=== PATIENT | male | born 1975 | race Caucasian/White ===

== ENCOUNTER 2023-08-26 12:42 | Outpatient (CLI) | payer BC, SELFPAY | END 2023-08-26 12:43 | disposition home or self-care (01) | LOC: ANHBWCAUD 12:43 | PROVIDERS: PCP Family Medicine; Visit Provider Otolaryngology | DX: H93.19 Tinnitus, unspecified ear (principal); H90.42 Sensorineural hearing loss, unilateral, left ear, with unrestricted hearing on the contralateral side | CPT/HCPCS: 92557; 92567 ==

== ENCOUNTER 2025-06-29 09:19 | Emergency (ER) | payer BC, SELFPAY ==
--- NOTE | ~2025-06-29 | XR_ITS ---
EXAMINATION: XR wrist LT min 3V DATE: 06/29/2025 10:04 INDICATION: Fall on stairs TECHNIQUE: Posteroanterior, ulnar deviation, oblique, and lateral views of the left wrist were obtained. COMPARISON: none FINDINGS: Bone alignment is normal with normal variant type II lunate with separate facet along the midcarpal joint which articulates with the hamate. No fracture. Joint spaces are normal. Soft tissues are unremarkable. IMPRESSION: 1. No acute osseous abnormality. Reviewed, dictated and finalized at location A. BOUND BOX MACHINE OPERATOR
--- OUTSIDE RECORDS SUMMARY | 2025-06-29 09:22 | XMS_ITS | Encounter Summary ---
Author Organization [facility] Address [address] [facility] [place] [address] Care Team Providers Care Buildings And Grounds Supervisor Name Role Phone Jaycob Tinoco MD Primary Care Provider [phone] Encounter Details Date Type Department Care Team (Late st Contact Info) Description 09/26/2020 Lab Requisition [facility] DermPath Lab [address] [facility], [facility] [place] [id number] Cr Will MD [address] [address] Social History Tobacco Use Types Packs/Day Years Used Date Smoking Tobacco: Never Assessed Sex and Gender Information Value Date Recorded Sex Assigned at Male 09/19/2021 1:59 PM CDT 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 Gender Identity Male 09/19/2021 1:59 PM CDT Sexual Orientation Straight 09/19/2021 1: 59 PM CDT documented as of this encounter Plan of Treatment Not on file documented as of this encounter Procedures Procedure Name Priority Date/Time Associated Diagnosis Comments DERMATOPATHOLOGY Routine 09/25/2020 12:0 0 AM CDT documented in this encounter Results * DERMATOPATHOLOGY (09/25/2020 12:00 AM CDT) Case Report Dermatopathology Report Case: [id number] Authorizing Provider: Cr Will MD Collected: 09/25/2020 12:00 AM Ordering Location: [facility] DermPath Lab Received: 09/26/2020 12:26 PM Pathologist: Keesha Harding MD Specimens: A) - Skin, ant left shoulder B) - Skin, post right shoulder 12:50 PM CDT DERMATOPATHOLOGY LABORATORY Final Diagnosis Specimen A. SKIN, ant left shoulder: DERMAL SCAR RESIDUAL BASAL CELL CARCINOMA NOT IDENTIFIED (L90.5) Specimen B. SKIN, post right shoulder: BASAL CELL CARCINOMA, SUPERFICIAL MULTIFOCAL (C44.612) NOT PRESENT AT SAMPLED MARGIN DERMAL SCAR (L90.5) (see microscopic description) 12:50 PM CDT DERMATOPATHOLOGY LABORATORY at 1250 CDT Clinical History A-B: Bx proven BCC. Check margins. Previous Bx: [id number]. 12:50 PM CDT DERMATOPATHOLOGY LABORATORY Gross Description Specimen A: Received is one formalin filled container labeled with the patient's name and designated ant left shoulder. The specimen consists of a curettage and desiccation biopsy measuring [id number], the margin is inked green. Jar 0. Specimen B: Received is one formalin filled container labeled with the patient's name and designated post right shoulder. The specimen consists of a curettage and desiccation biopsy measuring [id number], the margin is inked green. Jar 0. 12:50 PM CDT DERMATOPATHOLOGY LABORATORY Microscopic Description Specimen A. SKIN, ant left shoulder: There are fibroblasts and collagen bundles oriented parallel to the skin surface. There are elongated blood vessels, some of which are oriented perpendicular to the skin surface. No basal cell carcinoma is identified on hematoxylin and eosin or BerEP4 immunohistochemical stains. Specimen B. SKIN, post right shoulder: Attached to the undersurface of the epidermis, there are small aggregates of basaloid cells with a high nuclear to cytoplasmic ratio and peripheral palisading. This lesion is not present at the sampled margin of the specimen.There are fibroblasts and collagen bundles oriented parallel to the skin surface with elongated blood vessels, some of which are oriented perpendicular to the skin surface. Additional deeper sections were obtained and reviewed. 12:50 PM CDT DERMATOPATHOLOGY LABORATORY Disclaimer An external and internal positive and negative controls are appropriate for the histochemical, immunohistochemical and immunofluorescence stain(s) in this case (if any), except where stated explicitly. The performance characteristics of the stain(s) cited in this report were developed and its performance characteristic determined by the Dermatopathology Laboratory at [facility], directed by Dr. Aurelia Negron. These tests need not be, and therefore are not, approved by the [place] Food and Drug Administration. The tests are used for clinical purposes. Billing Codes Specimen Charges Stain Charges 53827 03490 1 1 58974 1 1 12:50 PM CDT DERMATOPATHOLOGY LABORATORY Embedded Images 12:50 PM CDT DERMATOPATHOLOGY LABORATORY Pathology/Cytology TISSUE SPECIMEN FROM SKIN / Unknown 09/25/2020 09/26/2020 12:26 PM CDT Miscellaneous samples (specimen) TISSUE SPECIMEN FROM SKIN / Unknown 09/25/2020 09/26/2020 12:26 PM CDT Cr Will MD LAB - PATHOLOGY/CYTOLOGY ORD ERABLES Final Result DERMATOPATHOLOGY LABORATORY [facility] - Department of Dermatology [facility] Specialized Medicine [address] [place] [address], [address] [phone] documented in this encounter Visit Diagnoses Not on filedocumented in this encounter Care Teams Buildings And Grounds Supervisor Relationship Specialty Start Date End Date Jaycob Tinoco MD [address] [place] [address] PCP - General Family Medicine 05/07/21 documented as of this encounter
--- OUTSIDE RECORDS SUMMARY | 2025-06-29 09:22 | XMS_ITS | Encounter Summary ---
Author Organization [facility] Address [address] [place] [address] Care Team Providers Care Document Processing Specialist Name Role Phone Jaycob Tinoco MD Primary Care Provider [phone] Encounter Details Date Type Department Care Team (Late st Contact Info) Description 09/07/2020 Lab Requisition [facility] DermPath Lab [address] [place] [id number] Cr Will MD [address] [place] [address] Social History Tobacco Use Types Packs/Day Years Used Date Smoking Tobacco: Never Assessed Sex and Gender Information Value Date Recorded Sex Assigned at Male 09/19/2021 1:59 PM CDT 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 Gender Identity Male 09/19/2021 1:59 PM CDT Sexual Orientation Straight 09/19/2021 1: 59 PM CDT documented as of this encounter Plan of Treatment Not on file documented as of this encounter Procedures Procedure Name Priority Date/Time Associated Diagnosis Comments DERMATOPATHOLOGY Routine 09/05/2020 3:33 AM HAND THERMAL CUTTER documented in this encounter Results * DERMATOPATHOLOGY (09/05/2020 3:33 AM HAND THERMAL CUTTER) Case Report Dermatopathology Report Case: [id number] Authorizing Provider: Cr Will MD Collected: 09/05/2020 03:33 AM Ordering Location: [facility] DermPath Lab Received: 09/07/2020 06:50 AM Pathologist: Dionna Burgos MD Specimens: A) - Skin, anterior left shoulder B) - Skin, posterior right shoulder 1:05 PM [facility] DERMATOPATHOLOGY LABORATORY Final Diagnosis Specimen A. SKIN, anterior left shoulder: BASAL CELL CARCINOMA, SUPERFICIAL MULTIFOCAL (C44.619) Specimen B. SKIN, posterior right shoulder: BASAL CELL CARCINOMA, SUPERFICIAL MULTIFOCAL (C44.612) 1 1:05 PM [facility] DERMATOPATHOLOGY LABORATORY at 1305 HAND THERMAL CUTTER Clinical History A-B: R/O HAK, Arellano's, SCC, BCC. 1 1:05 PM [facility] DERMATOPATHOLOGY LABORATORY Gross Description Specimen A: Received is one formalin filled container labeled with the patient's name and designated anterior left shoulder. The specimen consists of a shave biopsy measuring [id number]. Jar 0. Specimen B: Received is one formalin filled container labeled with the patient's name and designated posterior right shoulder. The specimen consists of a shave biopsy measuring [id number]. Jar 0. 1 1:05 PM [facility] DERMATOPATHOLOGY LABORATORY Microscopic Description Specimen A. SKIN, anterior left shoulder: Attached to the undersurface of the epidermis, there are small aggregates of basaloid cells with a high nuclear to cytoplasmic ratio and peripheral palisading. Specimen B. SKIN, posterior right shoulder: Attached to the undersurface of the epidermis, there are small aggregates of basaloid cells with a high nuclear to cytoplasmic ratio and peripheral palisading. 1 1:05 PM [facility] DERMATOPATHOLOGY LABORATORY Disclaimer An external and internal positive and negative controls are appropriate for the histochemical, immunohistochemical and immunofluorescence stain(s) in this case (if any), except where stated explicitly. The performance characteristics of the stain(s) cited in this report were developed and its performance characteristic determined by the Dermatopathology Laboratory at [facility], directed by Dr. Aurelia Negron. These tests need not be, and therefore are not, approved by the [place] Food and Drug Administration. The tests are used for clinical purposes. Billing Codes Specimen Charges Stain Charges 35197 [id number] 1 1 1 1:05 PM [facility] DERMATOPATHOLOGY LABORATORY Embedded Images 1:05 PM [facility] DERMATOPATHOLOGY LABORATORY Pathology/Cytology TISSUE SPECIMEN FROM SKIN / Unknown 09/05/2020 3:33 AM HAND THERMAL CUTTER 09/07/2020 6:50 AM HAND THERMAL CUTTER Miscellaneous samples (specimen) TISSUE SPECIMEN FROM SKIN / Unknown 09/05/2020 3:33 AM HAND THERMAL CUTTER 09/07/2020 6:50 AM HAND THERMAL CUTTER Cr Will MD LAB - PATHOLOGY/CYTOLOGY ORD ERABLES Final Result DERMATOPATHOLOGY LABORATORY [facility] - Department of Dermatology [facility] Specialized Medicine [address] [place] [address], [address] Floor [address] [phone] documented in this encounter Visit Diagnoses Not on filedocumented in this encounter Care Teams Document Processing Specialist Relationship Specialty Start Date End Date Jaycob Tinoco MD [address] [place] [address] PCP - General Family Medicine 05/07/21 documented as of this encounter
--- OUTSIDE RECORDS SUMMARY | 2025-06-29 09:22 | XMS_ITS | Clinical Summary ---
Author Organization [facility] Address [address] [place] [address] Phone Care Team Providers Care Souvenir Street Vendor Name Role Phone Jaycob Tinoco MD Primary Care Provider [phone] Allergies No known active allergies Medications amLODIPine (NORVASC) 10 MG Tablet 12/11/2024 Active escitalopram (LEXAPRO) 10 MG Tablet Take 10 mg by mouth daily. Active busPIRone (BUSPAR) 10 MG Tablet Take 10 mg by mouth. 09/08/2021 Active Active Problems No known active problems Social History Tobacco Use Types Packs/Day Years Used Date Smoking Tobacco: Never Smokeless Tobacco: Never Sex and Gender Information Value Date Recorded Sex Assigned at Not on file Legal Sex Male 10:13 PM CDT Gender Identity Not on file Sexual Orientation Not on file Last Filed Vital Signs Vital Sign Reading Time Taken Comments Blood Pressure 124/72 12/21/2024 8:13 AM CDT Pulse 76 12/21/2024 8:13 AM CDT Temperature 36.2 C (97.2 F) 12/21/2024 8:13 AM CDT Respiratory Rate 20 12/21/2024 8:13 AM CDT Oxygen Saturation 94% 12/21/2024 8:13 AM CDT Inhaled Oxygen Concentration - - Weight - - Height - - Body Mass Index - - Plan of Treatment Health Maintenance Due Date Last Done Comments Hepatitis C Virus (HCV) Screening 1974 Hepatitis B Immunization (1 of 3 - 19+ 3-dose series) 1993 Cologuard 2019 Colonoscopy 2019 Colorectal Cancer Screening 2019 Immunochemical Fecal Occult Blood 2019 Pneumococcal Immunization (50+ years) (1 of 1 - PCV) 2024 Influenza Immunization (#1) 03/07/202504/06, 05/04/2023, 05/01/2022, Additional history exists SARS-COV-2 Immunization ( - 2024- season) 2025 04/16/2024, 07/14/2022, 05/15/2021, Additional history exists Respiratory Syncytial Virus (RSV) Immunization (Adult) (1 - 1-dose 75+ series) 2049 TdaP Immunization Completed 03/30/2019 Zoster Immunization Completed 08/30/2024, Human Papillomavirus (HPV) Immunization (No Doses Required) Completed Meningococcal Immunization (ACWY) Aged Out No longer eligible based on patient's age to complete this topic Rotavirus Immunization Aged Out No lo nger eligible based on patient's age to complete this topic Insurance Care Teams Souvenir [address] Vendor Relationship Specialty Start Date End Date Jaycob Tinoco MD [address] [address] PCP - General Family Medicine 12/21/24
--- OUTSIDE RECORDS SUMMARY | 2025-06-29 09:22 | XMS_ITS | Patient Health Record ---
Author Organization [facility] , Address [address] [place] [address] Care Team Providers Care Weather Stripper Name Role Phone Jaycob Tinoco Primary Care Provider Jamel Kearney Unavailable [phone] Reason For Referral No Information Plan Of Treatment No Information Insurance Providers Payer Name Payer Address Payer Phone Subscriber Number Group Number Insured Name Patient Relationship to Insured Coverage Start Date Coverage End Date Leticia [facility] [address] [place] [address] [phone] [id number] Dinesh Riley Self - patient is the insured
--- OUTSIDE RECORDS SUMMARY | 2025-06-29 09:22 | XMS_ITS | Clinical Summary ---
Author Organization [facility] Address [address] [place] [address] Care Team Providers Care Sales Mgr Name Role Phone Jaycob Tinoco MD Primary Care Provider Source Comments [facility],non-owned Affiliates and Associated Physician Practices is amultiple site organization consisting of ambulatory clinics and hospital sitesin [place], [place], [place] and [place]. This disclosure is being madepursuant to the Care Everywhere program and may not contain all information available regarding this patient. Last updated 18.[facility] Allergies No known active allergies Medications * Be aware that medications may not be up to date on this document. Alwaysverify current medications with the patient. busPIRone (BUSPAR) 10 MG tablet Take 10 mg by mouth 2 times daily 09/08/2021 Active escitalopram (LEXAPRO) 10 MG tablet Take 10 mg by mouth once daily Active levocetirizine (XYZAL) 5 MG tablet Take 5 mg by mouth once daily Active Active Problems Problem Noted Date Diagnosed Date Class 2 severe obesity due t o excess calories with serious comorbidity and body mass index (BMI) of 38.0 to 38.9 in adult 09/28/2021 Fatty liver 09/28/2021 Mixed hyperlipidemia 09/28/2021 Anxiety 09/28/2021 Social History Tobacco Use Types Packs/Day Years Used Date Smoking Tobacco: Every Day Cigars Smokeless Tobacco: Never Tobacco Cessation:Ready to Q uit: Yes; Counseling Given: Yes Alcohol Use Standard Drinks/Week Comments Yes 0 (1 standard drink = 0.6 oz pur e alcohol) Sex and Gender Information Value Date Recorded Sex Assigned at Male 09/19/2021 1:59 PM CDT 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 Gender Identity Male 09/19/2021 1:59 PM CDT Sexual Orientation Straight 09/19/2021 1: 59 PM CDT Last Filed Vital Signs Vital Sign Reading Time Taken Comments Blood Pressure 130/80 04/29/2022 2:19 PM CDT RETOOK PATIENT BP CAUSE IT WAS HIGH HE WALK UP THE STAIR WHEN HE ARRIVE FOR HIS APPT Pulse 69 04/29/2022 2:19 PM CDT Temperature 36.8 C (98.3 F) 04/29/2022 2:19 PM CDT Respiratory Rate 20 12/05/2021 10:2 6 AM CDT Oxygen Saturation 97% 04/29/2022 2:1 9 PM CDT Inhaled Oxygen Concentration - - Weight 125.6 kg (276 lb 12.8 oz) 04/29/2022 2:19 PM CDT Height 180.3 cm (5' 11) 04/29/2022 2:1 9 PM CDT Body Mass Index 38.61 04/29/2022 2:19 PM CDT Plan of Treatment Health Maintenance Due Date Last Done Comments COLOGUARD (AGES 45-75) - COLON CA SCREENING 1974 COLON MONITORING 1974 COLONOSCOPY - COLON CA SCREENING 1974 CT COLONOGRAPHY - COLON CA SCREENING 1974 Colorectal Cancer Screening 1974 FIT - COLON CA SCREENING 1974 FLEX SIG - COLON CA SCREENING 1974 LIPID TESTING 1974 HIV SCREENING 1989 HEPATITIS C SCREENING 04/18/1992 DTAP/TDAP/TD VACCINES (1 - Tdap) 1993 HEPATITIS B VACCINE (1 of 3 - 19+ 3-dose series) 1993 PNEUMOCOCCAL VACCINE 50+ (1 of 2 - PCV) 1993 ZOSTER VACCINE (1 of 2) 2024 DEPRESSION SCREENING 07/07/2024 SCREENING FOR DIABETES 09/19/2024 09/19/2021 COVID-19 VACCINE (3 - 2024- season) 2025 05/15/2021, 09/08/2020 INFLUENZA VACCINE (#1) 2025 , 03/15/2021, 04/11/2020, Additional history exists HIB VACCINE Aged Out No longer eligi ble based on patient's age to complete this topic HPV VACCINE Aged Out No longer eligi ble based on patient's age to complete this topic MENINGOCOCCAL (Group B) VACCINE SHARED DECISION-MAKING Aged Out No longer eligible based on patient's age to complete this topic MENINGOCOCCAL GROUPS A/C/Y/W VACCINE Aged Out No longer eligible based on patient's age to complete this topic Procedures Procedure Name Priority Date/Time Associated Diagnosis Comments BASIC METABOLIC PANEL (CALCIUM TOTAL) Routine 09/19/2021 8:39 AM CDT Class 3 severe obesity due to excess calories with serious comorbidity and body mass index (BMI) of 40.0 to 44.9 in adult from Last 3 Months or Most Recently Relevant to Health Maintenance Results * BASIC METABOLIC PANEL (CALCIUM TOTAL) (09/19/2021 8:39 AM CDT) Glucose 96 65 - 99 mg/dL [facility] INSURANCE BILL BUN 14 6 - 24 mg/dL [facility] INSURANCE BILL Creatinine 0.95 0.76 - 1.27 mg/dL [facility] INSURANCE BILL eGFR by CKD-EPI 99 >59 mL/min/1.7 3 [facility] INSURANCE BILL BUN/Creatinine Ratio 15 9 - 20 [facility] INSURANCE BILL Sodium 144 134 - 144 mmol/L [facility] INSURANCE BILL Potassium 5.0 3.5 - 5.2 mmol/L [facility] INSURANCE BILL Chloride 104 96 - 106 mmol/L [facility] INSURANCE BILL CO2 22 20 - 29 mmol/L [facility] INSURANCE BILL Calcium 9.7 8.7 - 10.2 mg/dL [facility] INSURANCE BILL Comment:FASTING Blood BLOOD SPECIMEN / Unknown 09/19/2021 8:39 AM CDT 09/19/2021 Narrative Resulting Agency Comment Lab Testing performed at: [facility] [address] [id number] [place] Lizett Garcia MD LAB - CHEMISTRY ORDERABLES F inal Result [facility] INSURANCE BILL [address] [place] [address] from Last 3 Months or Most Recently Relevant to Health Maintenance Insurance [facility] [place] [id number] [facility] [place] [id number] Care Teams Sales Mgr Relationship Specialty Start Date End Date Jaycob Tinoco MD [address] [place] [address] PCP - General Family Medicine 05/07/21
--- OUTSIDE RECORDS SUMMARY | 2025-06-29 09:22 | XMS_ITS | Clinical Summary ---
Author Organization [facility] Address Count includes the [facility] [place] [address] Care Team Providers Care Gas Derrick Operator Name Role Phone Unavailable Primary Care Provider Unavailabl e Allergies No known active allergies Medications atorvastatin 20 MG tablet Take 20 mg by mouth daily. Active cetirizine 10 MG tablet Take 10 mg by mouth daily. Active escitalopram 10 MG tablet Take 10 mg by mouth daily. Active omeprazole 40 MG capsule Take 40 mg by mouth daily. Active aspirin 81 MG chewable tablet Chew 81 mg by mouth daily. Active Social History Tobacco Use Types Packs/Day Years Used Date Smoking Tobacco: Never Smokeless Tobacco: Never Sex and Gender Information Value Date Recorded Sex Assigned at Not on file Legal Sex Male 2:16 PM METER INSPECTOR Gender Identity Not on file Sexual Orientation Not on file Last Filed Vital Signs Vital Sign Reading Time Taken Comments Blood Pressure 128/82 08/28/2017 11:34 AM METER INSPECTOR Pulse 73 08/28/2017 11:34 AM METER INSPECTOR Temperature 36.7 C (98.1 F) 05/26/2017 3:52 PM METER INSPECTOR Respiratory Rate 18 05/26/2017 3:52 PM METER INSPECTOR Oxygen Saturation 95% 05/26/2017 3:52 PM METER INSPECTOR Inhaled Oxygen Concentration - - Weight 139.3 kg (307 lb) 08/28/2017 11:34 AM METER INSPECTOR Height 185.4 cm (6' 1) 08/28/2017 11:34 AM METER INSPECTOR Body Mass Index 40.5 08/28/2017 11:34 AM METER INSPECTOR Plan of Treatment Health Maintenance Due Date Last Done Comments Colorectal Cancer Screening Colonoscopy (10 Years) 1974 Annual Physical 1977 Hepatitis C 1992 DTaP, Tdap and Td Vaccines ( 1 - Tdap) 1993 Hepatitis B Vaccines (1 of 3 - 19+ 3-dose series) 1993 Pneumococcal Vaccine: 50+ Ye ars (1 of 1 - PCV) 2024 Zoster Vaccines (1 of 2) 2024 COVID-19 Vaccine (1 - 2024-2 6 season) 2025 Influenza Adult (#1) 2025 Hepatitis A Vaccines Aged Out No long er eligible based on patient's age to complete this topic Meningococcal B Vaccine Aged Out No l onger eligible based on patient's age to complete this topic Meningococcal Vaccine Aged Out No karla tracy eligible based on patient's age to complete this topic RSV Immunizations Under 20 Months Aged Out No longer eligible based on patient's age to complete this topic Insurance [facility] Advance Directives * Full Code (Latest Code Status on File) Date Activated Date Inactivated Comments 05/26/2017 1:25 PM 05/27/2017 8:54 AM
--- OUTSIDE RECORDS SUMMARY | 2025-06-29 09:22 | XMS_ITS | Encounter Summary ---
Author Organization [facility] Address [address] [place] [address] Care Team Providers Care Canal Boat Captain Name Role Phone Unavailable Primary Care Provider Unavailabl e Encounter Details Date Type Department Care Team (Late st Contact Info) Description 05/23/2017 Pre-Procedure Call [facility] [place] [address] Jodi Landeros, RN Social History Tobacco Use Types Packs/Day Years Used Date Smoking Tobacco: Never Assessed Sex and Gender Information Value Date Recorded Sex Assigned at Not on file Legal Sex Male 2:16 PM WAGON WASHER Gender Identity Not on file Sexual Orientation Not on file documented as of this encounter Last Filed Vital Signs Vital Sign Reading Time Taken Comments Blood Pressure - - Pulse - - Temperature - - Respiratory Rate - - Oxygen Saturation - - Inhaled Oxygen Concentration - - Weight 140.6 kg (310 lb) 05/23/2017 12:00 AM WAGON WASHER Height 185.4 cm (6' 1) 05/23/2017 12:00 AM WAGON WASHER Body Mass Index 40.9 05/23/2017 12:00 AM WAGON WASHER documented in this encounter Plan of Treatment Not on file documented as of this encounter Visit Diagnoses Not on filedocumented in this encounter
--- OUTSIDE RECORDS SUMMARY | 2025-06-29 09:22 | XMS_ITS | Encounter Summary ---
Author Organization [facility] Address [address] [place] [address] Care Team Providers Care Stock Selector Name Role Phone Unavailable Primary Care Provider Unavailabl e Encounter Details Date Type Department Care Team (Late st Contact Info) Description 05/23/2017 Hospital Orders Only 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
[2025-06-29 09:23] VITALS: BP 145/81; PULSE 89; RESP 20; TEMP 36.3; O2SAT 97
--- NOTE | 2025-06-29 09:47 | ED.GENADULT ---
HPI - General Adult General Chief complaint: Extremity Injury, Upper Stated complaint: left wrist pain/right elbow/upper respiratory Time Seen by Provider: 06/29/25 09:47 Source: patient, RN notes reviewed and old records reviewed Mode of arrival: ambulatory Limitations: no limitations History of Present Illness HPI narrative: 50 year old male presents to [facility] care with complaints of falling at home 1 week ago and has pain to the base of his left wrist and hand,states that he put arm down to break fall, has also complaints of some pain to his right posterior elbow with history of previous tendonitis to his elbow. He reports also some nasal congestion with ear pain for the past few days. Patient reports that he has been taking Advil and using Afrin nasal spray. MD complaint: left wrist pain, right elbow discomfort, and sinsus congestion and ear pain Onset (ago): week(s) (2 weeks right elbow,1 week left wrist, few days sinus and ear pain) Severity scale (1-10): 4 Quality: aching Treatments prior to arrival: NSAID and other (afrin nasal spray) Related Data Allergies Allergy/AdvReac Type Severity Reaction Status Date / Time atorvastatin AdvReac Intermediate myalgia Verified 06/29/25 09:30 Review of Systems Review of Systems: CONSTITUTIONAL: Denies fever, chills, or sweats. EYES: Denies visual changes, redness, or discharge. ENT: Reports rhinorrhea, congestion, no sore throat, + otalgia. CARDIOVASCULAR: Denies chest pain, palpitations, or edema. RESPIRATORY: reports cough no dyspnea. GASTROINTESTINAL: Denies abdominal pain, nausea, vomiting, or diarrhea. GENITOURINARY: Denies dysuria or hematuria. SKIN: Denies rash or itching. MUSCULOSKELETAL: Denies back pain, positive left wrist pain since fall 1 week ago also some tendonitis to right elbow or myalgia. NEUROLOGIC: Denies headache, numbness, or weakness. PSYCHIATRIC: Denies anxiety or depression. All systems reviewed & are unremarkable except as noted in HPI and below PMFSH Past Medical History Medical History Morbid obesity with BMI of 40.0-44.9, adult Obesity (BMI 35.0-39.9 without comorbidity) Hypertension Overactive bladder History of basal cell cancer Surgical History Surgical History History of shoulder surgery History of knee surgery Hx of colonoscopy Family History Family History Father Hypertension Grandparent Hypertension Malignant neoplasm of prostate Mother H/O heart bypass surgery Heart disease Sibling Hypertension Social History Social History Smoking status: Former smoker Tobacco type: cigars Second hand tobacco smoke exposure: Yes Smoking end date: 07/07/20 Alcohol intake: current Drinks per week: 4 Substance use: never Substance use type: does not use Lack of Transportation: No Lack of Food: Never True Current Housing: I Have Housing Concerned About Future Housing: No Difficulty Paying Gas/Electric Bills: No Difficulty Paying for Meds: No Currently Unemployed: No Education: Bachelor's Degree Difficulty w/ Childcare or Family Care: No Living arrangements: with family Additional living arrangements comments: and kids Occupation/Education: occupation 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 There is no relevant family history pertinent to the presenting complaint Exam Narrative: GENERAL: Well-appearing, well-nourished,obese, and in no acute distress. HEAD: Normocephalic, atraumatic. EYES: PERRLA and EOMI. ENT: Nares clear, clear rhinorrhea no epistaxis. Mucous membranes moist.TM's normal with good light reflex, throat red no swelling or tonsil enlargement or exudates NECK: Supple.no lymphadenopathy CHEST: Clear to auscultation. No respiratory distress.occasional cough nonproductive SAO2 97% HEART: Regular rate and rhythm. No murmur heard. Normal peripheral pulses. ABDOMEN: Soft, nontender, nondistended, normal active bowel sounds. EXTREMITIES: Normal range of motion. No edema. Pain to posterior right elbow with stated past history of tendonitis of elbow, left wrist pain from fall on stairs at home on stairs. Patient has full mobility of all extremities no swelling noted circulation is intact to extremities with no tingling or numbness voiced. SKIN: Warm, dry, no rash. NEURO: No focal deficits. Alert and oriented x3.of Course Course Level of Care: Express Care Visit Vital Signs Vital signs: Vital Signs Temperature 36.3 C L 06/29/25 09:23 Pulse Rate 89 06/29/25 09:23 Respiratory Rate 20 06/29/25 09:23 Blood Pressure 145/81 H 06/29/25 09:23 Pulse Oximetry 97 06/29/25 09:23 Oxygen Delivery Room Air 06/29/25 09:23 Temperature 36.3 C L 06/29/25 09:23 Pulse Rate 89 06/29/25 09:23 Respiratory Rate 20 06/29/25 09:23 Blood Pressure 145/81 H 06/29/25 09:23 Pulse Oximetry 97 06/29/25 09:23 Oxygen Delivery Room Air 06/29/25 09:23 reviewed MDM MDM Narrative Medical decision making narrative: Patient presents with left wrist pain from fall with no fracture noted, some right elbow tendonitis and URI symptoms. Will treat with Flonase and some Prednisone with RX sent to patient's pharmacy.Patient agrees with plan of care. Patient received anticipatory guidance and reasons to seek care in ED reviewed with understanding voiced. Differential Diagnosis Differential Diagnosis: Differential diagnostic considerations for upper respiratory infection include upper respiratory infection, croup, otitis media, sinusitis, viral infection, bronchitis, influenza, pharyngitis, strep, uvulitis.? Differential diagnostic considerations for upper extremity injury include sprain/strain of wrist, fracture of wrist, finger sprain, dislocation of finger, fracture of hand, dislocation of shoulder, fracture of humerus, fracture of clavicle, laceration, tendon injury, carpal tunnel syndrome.? Imaging Data Attestation: I personally reviewed and interpreted this imaging study as follows: My impression: no acute osseous abnormality no fracture noted Radiologist's impression: ITS Impressions Wrist X-Ray 06/29/25 10:21 IMPRESSION: 1. No acute osseous abnormality. [facility] [place] [address] [place] [address] XRay Report Signed Patient: Dinesh Riley : 1975 MR#: [id number] Age: 50 Acct:[id number] Loc: [facility] ADM Date: 06/29/[address]: Ordering Physician: Tonya Deluna APRN Date of Service: 06/29/25 Procedure(s): XR wrist LT min 3V Accession Number(s): [id number] cc: Tonya Deluna APRN; Jaycob Tinoco MD~ EXAMINATION: XR wrist LT min 3V DATE: 06/29/2025 10:04 INDICATION: Fall on stairs TECHNIQUE: Posteroanterior, ulnar deviation, oblique, and lateral views of the left wrist were obtained. COMPARISON: none FINDINGS: Bone alignment is normal with normal variant type II lunate with separate facet along the midcarpal joint which articulates with the hamate. No fracture. Joint spaces are normal. Soft tissues are unremarkable. IMPRESSION: 1. No acute osseous abnormality. Reviewed, dictated and finalized at location A. OVEMENT INTERN Please be advised this is a medical document. It is intended for [id number] communication. It is written in medical language and may contain unfamiliar abbreviations or verbiage. Medical documents are intended to carry relevant information, facts as evident, and the clinical opinion of the practitioner at the time of the encounter. This report may have been done utilizing a voice recognition system. Attempts have been made to correct errors. However, there may be uncorrected grammatical, spelling, and recognition errors present. The file time of this note does not necessarily represent the time of service. Dictated By: Ricky Funes MD 06/29/25 1021 Signed By: <Electronically signed by Ricky Funes MD in OV> Critical Care Time Critical Care Time Critical Care Time: No Discharge Plan Discharge Clinical Impression: Right elbow tendinitis, Pain in left wrist URI (upper respiratory infection) Qualifiers: URI type: unspecified URI Qualified Code(s): J06.9 - Acute upper respiratory infection, unspecified Patient Disposition: Home Condition: Stable Instructions: Wrist Injury (ED), Upper Respiratory Infection (ED), Tendinitis (ED) Additional Instructions: Tylenol for lesser pain Ibuprofen regularly for the next 2-3 days for the inflammation Tylenol alternating with ibuprofen for pain for the next 2 days take with food Follow-up with orthopedic surgeon or hand surgeon if continued discomfort Follow-up with PCP if further problems or concerns Ice to the area 20-30 minutes 4-6 times a day Elevate above heart Increase fluids especially juices and water [id number] cough and cold medicine of your choice for your symptoms, recommend Delsym or Robitussin cough syrup Zyrtec Claritin or Anju daily include Coricidin brand decongestant Flonase nasal spray daily Steroids as directed--take with food heat to the face 20-30 minutes 4-6 times a day for pain Salt water gargles, throat lozenges or throat sprays as desired If your symptoms persist, change or worsen significantly before you can contact your personal physician then please, without delay, go to the emergency department for further evaluation. Follow-up with PCP in 7-10 days or sooner if needed Follow up with PCP soon in regards to your blood pressure which is elevated above threshold for referral. Blood pressure above 120/80 may indicate pre-hypertension. 145/81 Patient Language: Australian Prescriptions: New prednisone 20 mg tablet 40 mg PO DAILY 5 Days Qty: 10 0RF fluticasone propionate [Flonase Allergy Relief] 50 mcg/actuation spray,suspension 1 spray intranasal DAILY Qty: 16 0RF Rx Instructions: administer into each nostril No Action amlodipine 10 mg tablet 10 mg PO DAILY Qty: 90 3RF Follow-up/Referrals: Jaycob Tinoco MD [Primary Care Provider, [facility]] Time of Disposition: 10:33 Quality Michael Coma Scale Eyes: Open Verbal: Oriented and Alert Motor: Follows Commands [place] Coma Total Score: 15
== END 2025-06-29 10:38 | disposition home or self-care (01) ==
PROVIDERS: Emergency Provider Registered Nurse; PCP Family Medicine
DX: M67.823 Other specified disorders of tendon, right elbow (principal); M25.532 Pain in left wrist; J06.9 Acute upper respiratory infection, unspecified; I10 Essential (primary) hypertension; E66.01 Morbid (severe) obesity due to excess calories; Z68.41 Body mass index [BMI] 40.0-44.9, adult; Z85.828 Personal history of other malignant neoplasm of skin; Z87.891 Personal history of nicotine dependence
CPT/HCPCS: 73110; 99213; G0463